=== PATIENT | female | born 1960 | race Caucasian/White ===

== ENCOUNTER 2016-12-15 13:48 | Emergency (ER) | payer BC ==
[~2016-12-15] VITALS: Ht 160 cm; Wt 79.5 kg
[2016-12-15 13:50] VITALS: TEMP 98.4
[2016-12-15] MEDS ORDERED: WELLBUTRIN XL300 M1 PO (14:34)
[2016-12-15] MEDS ORDERED: TIROSINT125 MC1 PO (14:34)
[2016-12-15] MEDS ORDERED: DESYREL 100MG100 MG PO (14:35)
[2016-12-15] MEDS ORDERED: ZOCOR 40MG40 MG PO (14:35)
[2016-12-15] MEDS ORDERED: EFFEXOR XR75 MG/CAP PO (14:35)
[2016-12-15] MEDS ORDERED: DETROL LA4 PO (14:36)
[2016-12-15] MEDS ORDERED: VALTREX 50500 MG/TAB PO (14:36)
[2016-12-15] MEDS ORDERED: LOFIBRA54 MG PO (14:36)
[2016-12-15 15:59] LABS: BASO % 0.3 % (0.0-2.0); EOS % 0.3 % (0-4.0); GRAN # 9.6 (1.4-6.5); GRAN % 80.2 % (42.2-75.2); HEMATOCRIT 38.3 % (37.0-47.0); LYMPH # 1.5 (1.2-3.4); LYMPH % 12.7 % (20.0-51.0); MEAN CELL VOLUME 90 fl (80.0-100.0); MEAN CORPUSCULAR HEMOGLOBIN 31 pg (27.0-31.0); MEAN CORPUSCULAR HGB CONC 34 g/dl (33.0-37.0); MEAN PLATELET VOLUME 10.2 fl (7.4-10.4); MONO # 0.6 (0.1-0.6); MONO % 5.4 % (1.7-9.3); PLATELET COUNT 221 K/mm3 (130-400); RED BLOOD COUNT 4.26 M/mm3 (4.10-5.30); REDCELL DISTRIBUTION WIDTH-CV 12.6 % (11.5-14.5)
[2016-12-15 16:09] LABS: CALCIUM 9.5 mg/dL (8.4-10.2); CREATININE, serum 0.85 mg/dL (0.52-1.25)
[2016-12-15] MEDS ORDERED: NORCO 325 MG-51 TAB PO (19:11)
[2016-12-15] MEDS ORDERED: ZOFRAN 4MG T4 MG/TAB PO (19:11)
[2016-12-15 19:38] VITALS: BP 108/64; PULSE 78
== END 2016-12-15 19:38 | disposition home or self-care (01) ==
LOC: COL.ER 13:48
PROVIDERS: Emergency Medicine
DX: S32.592A Other specified fracture of left pubis, initial encounter for closed fracture (principal); V80.010A Animal-rider injured by fall from or being thrown from horse in noncollision accident, initial encounter
CPT/HCPCS: J1170; J1885; J2405; J7030; Q9967